=== PATIENT | female | born 1955 | race African-American/Black ===

== ENCOUNTER 2024-08-09 15:49 | Emergency (ER) | payer MEDICARE, MEDICAID ==
[~2024-08-09] VITALS: Ht 160 cm; Wt 91.0 kg
[2024-08-09 15:52] VITALS: TEMP 98.2; O2SAT 99
[2024-08-09] MEDS ORDERED: GUAI-741 MT (17:05)
[2024-08-09] MEDS ORDERED: BUDE6.9H INH (17:05)
[2024-08-09] MEDS ORDERED: AZIT250T12 MT (17:05)
[2024-08-09 17:42] VITALS: BP 195/81; PULSE 70; RESP 17; O2SAT 95
== END 2024-08-09 17:43 | disposition home or self-care (01) ==
LOC: ER 15:49
DX: J44.1 Chronic obstructive pulmonary disease with (acute) exacerbation (principal); I10 Essential (primary) hypertension; E11.9 Type 2 diabetes mellitus without complications; Z79.899 Other long term (current) drug therapy
CPT/HCPCS: 99283